=== PATIENT | female | born 1995 | race Two or more races ===

== ENCOUNTER 2017-08-30 20:09 | Emergency (ER) | payer MEDICAID ==
[~2017-08-30] VITALS: Ht 165.1 cm; Wt 68.0 kg
[2017-08-30 20:10] VITALS: BP 117/57
[2017-08-30] MEDS ORDERED: ALBUTEROL FS 2.5 MG/3 ML VIAL.NEB NEB ONE (21:00)
[2017-08-30] MEDS ORDERED: IPRATROPIUM NEB FS 0.5 MG/2.5 ML AMPUL.NEB NEB ONE (21:00)
[2017-08-30] MEDS ORDERED: predniSONE 20 MG TABLET PO ONE (21:00)
[2017-08-30] MEDS ORDERED: predniSONE 20 MG TABLET ONE (22:07)
[2017-08-30] MEDS ORDERED: ALBUTEROL FS 2.5 MG/3 ML VIAL.NEB ONE (22:18)
--- NOTE | 2017-08-30 22:18 | NUR ---
CALLED RT FOR BREATHING TX.
[2017-08-30] MEDS ORDERED: IPRATROPIUM NEB FS 0.5 MG/2.5 ML AMPUL.NEB ONE (22:19)
--- NOTE | 2017-08-30 22:29 | NUR ---
RT AT BEDSIDE FOR BREATHING TX.
== END 2017-08-30 22:57 | disposition home or self-care (01) ==
LOC: ER 20:16
DX: S29.011A Strain of muscle and tendon of front wall of thorax, initial encounter (principal); J20.9 Acute bronchitis, unspecified; X58.XXXA Exposure to other specified factors, initial encounter; Y93.89 Activity, other specified; Y92.89 Other specified places as the place of occurrence of the external cause; Y99.8 Other external cause status
CPT/HCPCS: 71045; 94640 ×2; 99284; A4606; J7512 ×2; Z7610